=== PATIENT | female | born 1995 | race Caucasian/White ===

== ENCOUNTER 2017-03-05 20:55 | Inpatient (IN) | payer MEDICAID ==
[2017-03-08] MEDS ORDERED: DERMOPLAST PAIN78 GM TOP (08:26)
[2017-03-08] MEDS ORDERED: MOTRIN800 MG PO (08:27)
== END 2017-03-08 16:45 | disposition short-term general hospital (02) | DRG 774 ==
LOC: LDROP 20:55 → LDRIP 22:35
PROVIDERS: ADMIT Family Medicine
PROC: 0KQM0ZZ Repair Perineum Muscle, Open Approach (ICD-10-PCS; principal; 2017-03-06)
PROC: 0W8NXZZ Division of Female Perineum, External Approach (ICD-10-PCS; principal; 2017-03-06)
PROC: 10D07Z6 Extraction of Products of Conception, Vacuum, Via Natural or Artificial Opening (ICD-10-PCS; principal; 2017-03-06)
PROC: 10907ZC Drainage of Amniotic Fluid, Therapeutic from Products of Conception, Via Natural or Artificial Opening (ICD-10-PCS; principal; 2017-03-06)
DX: O70.1 Second degree perineal laceration during delivery (principal); O72.1 Other immediate postpartum hemorrhage; Z37.0 Single live birth; D62 Acute posthemorrhagic anemia; Z3A.40 40 weeks gestation of pregnancy; O32.2XX0 Maternal care for transverse and oblique lie, not applicable or unspecified; F53 Mental and behavioral disorders associated with the puerperium, not elsewhere classified
CPT/HCPCS: A9150; J2210; J2300; J2310; J2370; J2540; J2590; J2765; J2795; J3010